=== PATIENT | male | born 1970 | race Caucasian/White ===

== ENCOUNTER 2018-09-05 22:27 | Observation (INO) ==
[2018-09-05] MEDS ORDERED: Morphine Inj 4 MG/ML Vial IV.PUSH ONE (22:36)
--- NOTE | 2018-09-05 22:43 | ED ---
HPI General Chief Complaint: Chest Pain Stated Complaint: chest pain Time Seen by Provider: 09/05/18 22:32 Source: patient Mode of arrival: ambulatory Limitations: no limitations History of Present Illness HPI narrative: The patient is a 48-year-old male who presents emergency department via private vehicle for chest pain. The patient states he was at a bar earlier [place], drinking beer, when he developed chest pain. The chest pain is substernal, lower aspect of the chest, radiating to the left upper extremity. He describes it occasionally is dull and occasionally a stabbing. He does complain of mild nausea and shortness of breath but denies any vomiting or diaphoresis. The patient denies any known history of coronary artery disease but does have a history of hypertension, noncompliant on medication. He denies any known history of hyperlipidemia, diabetes, prior CAD , or prior stress test/cardiac catheterization. He denies any recent exertional symptoms, but has had chest pain in the past, states he was evaluated the hospital for 8 hours and discharged home. He was advised to follow-up with a roofer gypsum, however, has not followed up with a roofer gypsum. MD complaint: Reports chest pain STEMI Alert: No Onset (ago): hour(s) Duration: intermittent Pain location: Reports substernal Severity: moderate Severity scale (1-10): 5 Quality: Reports sharp Pain radiation: Reports LUE Relieving factors: nothing Exacerbating factors: nothing Associated symptoms: Reports nausea and dyspnea Treatments prior to arrival chest pain: Reports none Related Data Home Medications Medication Instructions Recorded Confirmed No Known Home Medications 09/05/18 09/05/18 Allergies Allergy/AdvReac Type Severity Reaction Status Date / Time bee venom protein (honey bee) Allergy Severe PT STS Unverified 07/16/17 14:35 SEVERE REACTION Review of Systems ROS: all other systems reviewed are negative [facility] Medical History Medical History Basal cell carcinoma (Acute) Surgical History Surgical History Hx of adenoidectomy (Acute) Hx of tonsillectomy (Acute) Social History Social History Substance History: No History of Abuse Second Hand Smoke Exposure: Yes Smoking Status: Current every day smoker Tobacco Type: Cigarettes How Often Do You Have a Drink Containing Alcohol: 2 to 3 times a week Recent Travel in [facility] within the Last 8 Weeks: No Recent Out of Country Travel within the Last 8 Weeks: No Exam Narrative Exam Narrative: GENERAL: Awake, alert, pleasant 48-year-old male who appears his stated age and appears slightly intoxicated. SKIN: Focused skin assessment warm/dry. HEAD: Atraumatic. Normocephalic. EYES: Pupils equal and round. Mild injection bilaterally. ENT: No nasal bleeding or discharge. Mucous membranes pink and moist. Patient has a fleshy growth is approximately 2 cm in length over the right lateral duggan line. NECK: Trachea midline. No JVD. CARDIOVASCULAR: Regular rate and rhythm. No murmur appreciated. Heart rate in the 90s per RESPIRATORY: No accessory muscle use. Clear to auscultation. Breath sounds equal bilaterally. GASTROINTESTINAL: Abdomen soft, non-tender, nondistended. No rebound tenderness. MUSCULOSKELETAL: No obvious deformities. No clubbing. No cyanosis. No edema. NEUROLOGICAL: Awake and alert. No obvious cranial nerve deficits. Motor grossly within normal limits. Normal speech. PSYCHIATRIC: Appropriate mood and affect; insight and judgment normal. Course Initial Documented Vital Signs Pulse Rate 99 H 09/05/18 22:30 Respiratory Rate 18 09/05/18 22:30 Blood Pressure 200/94 H 09/05/18 22:30 Pulse Oximetry 96 09/05/18 22:30 Last Documented Vital Signs Pulse Rate 89 09/05/18 23:03 Respiratory Rate 15 09/05/18 23:03 Blood Pressure 175/85 H 09/05/18 23:03 Pulse Oximetry 99 09/05/18 23:03 Sign Out Sign Out Data: Patient Sign Out occurred on 09/06/18 at 00:07. Patient's care was discussed, and care was transferred from Tyson Albarado MD to Casimiro Modi MD. Sign Out Comment: 48-year-old male with history of hypertension with substernal chest pain rating to left upper extremity. Troponin pending. Patient may benefit from 23-hour observation to chest pain center if troponin is negative. Last updated by Tyson Albarado MD at 09/05/18 23:48 Post-Handoff Eval: The patient was evaluated by the previous provider and signed out to me at approximately midnight pending CMP, cardiac enzymes, and disposition. See his note for further details. Briefly this is a 48-year-old male who presented to the emergency department for substernal chest pain that radiated to his left shoulder that started at around 9:30 p.m. while at a bar. He reportedly had 2 beers to drink today. He is a daily smoker. He also has history of hypertension and is noncompliant with his medications. There is family history of cardiac disease in his father and brother who both had an SD. He has never been seen by a roofer gypsum. He was initially hypertensive with a systolic blood pressure in the 200s. Nitropaste was applied and repeat blood pressure shows 155/73. Patient was also provided morphine and aspirin by the previous provider and on my assessment he is pain-free. His EKG shows sinus rhythm with PVCs, normal axis, normal intervals, T wave inversions in lateral precordial and limb leads, no ST elevations. Cardiac enzymes are negative. The rest of his labs are reviewed. The patient was made aware of all findings and is amenable to being admitted to the chest pain center given his cardiac risk factors and presentation with chest pain. Case discussed with hospitalist GLORIA Earl who will admit the patient to the hospitalist service under Dr. Biswas. Medical Decision Making MDM Narrative Medical decision making narrative: IV was established, labs are drawn and sent, and the patient was placed on cardiac telemetry monitoring and continuous pulse oximetry monitoring. EKG was ordered and interpreted. The patient was administered aspirin, morphine, Zofran, nitroglycerin sublingual, and Nitropaste. Chest x-ray was obtained. Medical Screen Exam Complete: Yes Emergency Medical Condition: Yes Differential Diagnosis Differential Diagnosis: Differential diagnosis includes ACS, STEMI, dissection, esophageal spasm, GERD, esophagitis, gastritis, peptic ulcer disease, pancreatitis, pulmonary embolism. Lab Data Result diagrams: 09/05/18 22:45 09/05/18 22:30 Lab Results 09/05/18 09/05/18 09/05/18 Range/Units 22:30 22:45 22:45 CBC w Diff Auto diff final WBC 8.0 (4.0-11.0) th/mm3 RBC 4.64 (4.50-5.90) mil/mm3 Hgb 14.9 (13.0-17.0) gm/dL Hct 42.4 (39.0-51.0) % MCV 91.4 (80.0-100.0) fL MCH 32.1 (27.0-34.0) pg MCHC 35.1 (32.0-36.0) % RDW 12.6 (11.6-17.2) % Plt Count 233 (150-450) th/mm3 MPV 8.3 (7.0-11.0) fL Neut % (Auto) 52.9 (16.0-70.0) % Lymph % (Auto) 31.3 (9.0-44.0) % Ritchie % (Auto) 9.5 H (0.0-8.0) % Eos % (Auto) 5.3 H (0.0-4.0) % Baso % (Auto) 1.0 (0.0-2.0) % Neut # (Auto) 4.2 (1.8-7.7) th/mm3 Lymph # (Auto) 2.5 (1.0-4.8) th/mm3 Ritchie # (Auto) 0.8 (0.0-0.9) th/mm3 Eos # (Auto) 0.4 (0.0-0.4) th/mm3 Baso # (Auto) 0.1 (0.0-0.2) th/mm3 WBC Differential . Differential Comment . Sodium 139 (136-145) meq/L Potassium 3.6 (3.5-5.1) meq/L Chloride 107 (98-107) meq/L Carbon Dioxide 20.5 L (21.0-32.0) meq/L Anion Gap 12 (5-15) meq/L BUN 21 H (7-18) mg/dL Creatinine 1.20 (0.60-1.30) mg/dL Estimated GFR 64 L (>89) mL/min Random Glucose 100 (74-106) mg/dL Calcium 8.3 L (8.5-10.1) mg/dL Magnesium 2.4 (1.5-2.5) mg/dL Total Bilirubin 0.9 (0.2-1.0) mg/dL AST 22 (15-37) U/L ALT 37 (12-78) U/L Alkaline Phosphatase 91 (45-117) U/L Troponin I Less than 0.02 L (0.02-0.05) ng/mL Total Protein 7.7 (6.4-8.2) g/dL Albumin 4.1 (3.4-5.0) g/dL Lipase 136 (73-393) U/L Serum Alcohol 19 H (0-5) mg/dL Imaging Data Radiologist's impression: Chest X-Ray 09/05/18 22:37 CONCLUSION: No acute cardiopulmonary disease demonstrated. ECG Data EKG Prior to Arrival: No Attestation: I personally reviewed and interpreted this ECG as follows: Interpretation: EKG reveals sinus rhythm with unifocal PVC. Inverted T waves noted in lead V5, V6, I, and aVL. Q waves noted in lead V1. Discharge Plan Discharge Disposition Patient Disposition: 30 Still Patient Discharge Details Diagnosis: Chest pain Physicians Team ED Provider: Casimiro Modi Primary Care Provider: Primary Care Tamia Solorzano Rxs /Orders / Referrals /Forms Prescriptions: No Action No Known Home Medications RF: 0 Discharge Instructions Patient Printed Instructions: Chest Pain (ED) Status ED Status: With Doctor
--- NOTE | 2018-09-05 22:57 | XR ---
EXAM DATE: 09/05/2018 10:37 PM EDT AGE/SEX: 48 years / Male INDICATIONS: Chest pain starting today CLINICAL DATA: This is the patient's initial encounter. Patient reports that signs and symptoms have been present for 1 day and indicates a pain score of 8/10. MEDICAL/SURGICAL HISTORY: None. None. COMPARISON: No prior exams available for comparison. FINDINGS: A single AP view of the chest demonstrates the lungs to be symmetrically aerated without evidence of mass, infiltrate or effusion. The cardiomediastinal contours are unremarkable. Osseous structures a re intact. CONCLUSION: No acute cardiopulmonary disease demonstrated. Electronically signed by: Giovany Junior MD 09/05/2018 10:55 PM EDT
[2018-09-05 23:05] LABS: Baso # (Auto) 0.1 th/mm3 (0.0-0.2); Eos # (Auto) 0.4 th/mm3 (0.0-0.4); Eos % (Auto) 5.3 % (0.0-4.0); Hematocrit 42.4 % (39.0-51.0); Hemoglobin 14.9 gm/dL (13.0-17.0); Lymph # (Auto) 2.5 th/mm3 (1.0-4.8); Lymph % (Auto) 31.3 % (9.0-44.0); Mean Corpuscular HGB Conc 35.1 % (32.0-36.0); Mean Corpuscular Hemoglobin 32.1 pg (27.0-34.0); Mean Corpuscular Volume 91.4 fL (80.0-100.0); Mean Platelet Volume 8.3 fL (7.0-11.0); Mono # (Auto) 0.8 th/mm3 (0.0-0.9); Mono % (Auto) 9.5 % (0.0-8.0); Neut # (Auto) 4.2 th/mm3 (1.8-7.7); Neut % (Auto) 52.9 % (16.0-70.0); Platelet Count 233 th/mm3 (150-450); Red Blood Count 4.64 mil/mm3 (4.50-5.90); Red Cell Distribution Width 12.6 % (11.6-17.2)
[2018-09-05 23:16] LABS: Lipase 136 U/L (73-393)
[2018-09-05 23:23] LABS: Alcohol 19 mg/dL (0-5)
[2018-09-05 23:49] LABS: Chloride 107 meq/L (98-107); Potassium 3.6 meq/L (3.5-5.1); Sodium 139 meq/L (136-145)
[2018-09-05 23:52] LABS: Albumin 4.1 g/dL (3.4-5.0); Anion Gap 12 meq/L (5-15); Calcium 8.3 mg/dL (8.5-10.1); Carbon Dioxide 20.5 meq/L (21.0-32.0); Glucose,Random 100 mg/dL (74-106); Magnesium 2.4 mg/dL (1.5-2.5)
[2018-09-05 23:53] LABS: Blood Urea Nitrogen 21 mg/dL (7-18)
[2018-09-05 23:56] LABS: Alanine Aminotransferase 37 U/L (12-78); Aspartate Aminotransferase 22 U/L (15-37); Glomerular Filtration Rate 64 mL/min (>89)
[2018-09-05 23:57] LABS: Total Protein 7.7 g/dL (6.4-8.2)
[2018-09-05 23:58] LABS: Alkaline Phosphatase 91 U/L (45-117)
[2018-09-06] MEDS ORDERED: Morphine Inj 4 MG/ML Vial IV.PUSH PRN (00:20)
[2018-09-06] MEDS ORDERED: Acetaminophen 500 MG Tablet PO PRN (00:20)
[2018-09-06] MEDS: Heparin - SQ 10,000 UNITS/ML Vial SQ SCH ×2 (01:14→08:56)
[2018-09-06 02:11] LABS: Creatine Kinase 209 U/L (39-308)
[2018-09-06 05:06] LABS: Creatine Kinase 193 U/L (39-308)
[2018-09-06 08:34] VITALS: BP 164/98; RESP 17; TEMP 98.2; O2SAT 94
[2018-09-06] MEDS ORDERED: Aspirin 325 MG Tablet PO SCH (09:00)
--- NOTE | 2018-09-06 09:00 | P.HP ---
History of Present Illness Primary Care Physician: No Primary Care Physician Chief Complaint: Chest pain History of Present Illness: This is a 41-year-old male patient with a known medical history of tobacco abuse who presented to the ED with complaints of chest pain. Patient states he was at our last evening, drink a couple beers and suddenly developed a midsternal chest pain. Patient states that chest pain was located in the middle of his chest, did not radiate up his neck, arm or back, was characteristically tight and sharp in nature, was rated a 8 out of 10 at its worst on pain scale, would intermittently come and go lasting up to 10 minutes. Patient does admit to associated shortness of breath, denies any nausea, vomiting or sweating with the pain. Patient denies any history of coronary artery disease, does state he has a history of hypertension although does not take anything for it. He does have a significant family medical history of his brother having an IA at the age of 50 as well as his father having an IA at a young age. Patient does not take any medications at home. He does admit to smoking 2 packs/day of cigarettes to since his teen years. He is overweight. Denies any drug use. Denies any previous stress test in the past. It should be noted that patient was at the hospital in [facility] 2 weeks ago with similar complaints, he was evaluated and discharged home with no further input or workup. Was recommended that patient follow-up with the apprentice machinist outside although he has not followed up. At the time of assessment patient states his pain is continued, did improve with nitroglycerin. ACS has been ruled out. Patient will undergo a cardiac nuclear stress test to further rule out any ischemia. - Diagnosis (1) Chest pain Review of Systems All other systems reviewed negative except as stated in HPI PMFSH - History History Provided By: Patient - Medical History Medical History: Medical History (Last Reviewed 09/06/18 @ 11:15 by Isamar Dye) Basal cell carcinoma - Surgical History Surgical History: Surgical History (Last Reviewed 09/06/18 @ 11:15 by Isamar Dye) Hx of adenoidectomy Hx of tonsillectomy - Family History Family History: Family History (Last Reviewed 09/06/18 @ 11:17 by Isamar Dye) Father Myocardial infarction Brother Myocardial infarction - Tobacco History Second Hand Smoke Exposure: Yes Tobacco Use In Past 30 Days: Yes Smoking Status: Current every day smoker Tobacco Type: Cigarettes - Alcohol History How Often Do You Have a Drink Containing Alcohol: 2 to 3 times a week - Substance Use History Substance History: No History of Abuse - Travel History Recent Travel in the [place] Within the Last 8 Weeks: No Recent Travel Out of the Country Within the Last 8 Weeks: No - Immunization History Tetanus Immunization: Unsure Medications and Allergies Active Medications: Active Medications Acetaminophen (Tylenol) 500 mg PO Q4H PRN PRN Reason: HEADACHE Hydrocodone Bitart/Acetaminophen ([place] 7.5/325) 1 tab PO Q4H PRN PRN Reason: PAIN SCALE 1 TO 7 Aspirin (Aspirin) 325 mg PO DAILY LAINE Clonidine HCl (Catapres) 0.1 mg PO Q6H PRN PRN Reason: SBP>160, DBP>90 Heparin Sodium (Porcine) (Heparin Inj) 5,000 units SQ Q8H [facility] Last Admin: 09/06/18 01:14 Dose: 5,000 units Morphine Sulfate (Morphine Inj) 2 mg IV.PUSH Q4H PRN PRN Reason: PAIN SCALE 8 TO 10 Nitroglycerin (Nitrostat Sl) 0.4 mg SL Q5M PRN PRN Reason: CHEST PAIN Ondansetron HCl (Zofran Inj) 4 mg IV.PUSH Q6H PRN PRN Reason: NAUSEA Sodium Chloride (Ns Flush) 2 ml IV.FLUSH BID LAINE Sodium Chloride (Ns Flush) 2 ml IV.FLUSH PRN PRN PRN Reason: FLUSH AFTER USING IV ACCESS Allergies Allergy/AdvReac Type Severity Reaction Status Date / Time bee venom protein (honey bee) Allergy Severe PT STS Verified 09/06/18 07:34 SEVERE REACTION Home Medications Medication Instructions Recorded Confirmed Type No Known Home Medications 09/05/18 09/05/18 History Exam Vital signs: Vital Signs 09/05/18 22:30 09/05/18 22:32 09/05/18 23:03 Temperature Pulse Rate 99 H 89 89 Respiratory Rate 18 15 Blood Pressure 200/94 H 175/85 H Pulse Oximetry 96 99 99 09/06/18 00:35 09/06/18 00:54 09/06/18 00:56 Temperature Pulse Rate 82 Respiratory Rate 15 15 Blood Pressure 156/85 H Pulse Oximetry 99 96 09/06/18 01:14 09/06/18 01:45 09/06/18 04:00 Temperature 96.3 F L 96.5 F L Pulse Rate 72 70 Respiratory Rate 20 20 Blood Pressure 177/93 H 127/82 Pulse Oximetry 97 95 93 L 09/06/18 08:00 Temperature 98.2 F Pulse Rate 68 Respiratory Rate 17 Blood Pressure 164/98 H Pulse Oximetry 94 L Intake & Output 09/05/18 09/06/18 09/06/18 18:59 06:59 18:59 Intake Total 0 / 0 Balance 0 / 0 Weight 120.5 kg Intake: Oral 0 / 0 Other: Weight On Admission 120.6 kg Narrative: GENERAL: Well-developed, well-nourished obese male patient with current complaint of chest pain. SKIN: Warm and dry. No rash. HEAD: Normocephalic. Atraumatic. EYES: Pupils equal and round. No scleral icterus. No injection or drainage. ENT: No nasal bleeding or discharge. Mucous membranes pink and moist. NECK: Supple. Trachea midline. CARDIOVASCULAR: Regular rate and rhythm. S1, S2 noted. No murmur appreciated. RESPIRATORY: No accessory muscle use. Clear to auscultation. Breath sounds equal bilaterally. GASTROINTESTINAL: Abdomen soft, rounded firm, nondistended. Normoactive bowel sounds x4. MUSCULOSKELETAL: No obvious deformities. Extremities without clubbing, cyanosis , or edema. NEUROLOGICAL: Awake and alert. No obvious cranial nerve deficits. Motor grossly within normal limits. 5/5 muscle strength in bilateral upper and lower extremities. Normal speech. PSYCHIATRIC: Appropriate mood and affect; insight and judgment normal. Results - Labs CBC & Chem 7: 09/05/18 22:45 09/05/18 22:30 Labs: Laboratory Results - last 24 hr 09/05/18 09/05/18 09/05/18 22:30 22:45 22:45 CBC w Diff Auto diff final WBC 8.0 RBC 4.64 Hgb 14.9 Hct 42.4 MCV 91.4 MCH 32.1 MCHC 35.1 RDW 12.6 Plt Count 233 MPV 8.3 Neut % (Auto) 52.9 Lymph % (Auto) 31.3 Wilkin % (Auto) 9.5 H Eos % (Auto) 5.3 H Baso % (Auto) 1.0 Neut # (Auto) 4.2 Lymph # (Auto) 2.5 Wilkin # (Auto) 0.8 Eos # (Auto) 0.4 Baso # (Auto) 0.1 WBC Differential . Differential Comment . Sodium 139 Potassium 3.6 Chloride 107 Carbon Dioxide 20.5 L Anion Gap 12 BUN 21 H Creatinine 1.20 Estimated GFR 64 L Random Glucose 100 Calcium 8.3 L Magnesium 2.4 Total Bilirubin 0.9 AST 22 ALT 37 Alkaline Phosphatase 91 Total Creatine Kinase Troponin I Less than 0.02 L Total Protein 7.7 Albumin 4.1 Lipase 136 Serum Alcohol 19 H 09/06/18 09/06/18 01:45 04:30 CBC w Diff WBC RBC Hgb Hct MCV MCH MCHC RDW Plt Count MPV Neut % (Auto) Lymph % (Auto) Wilkin % (Auto) Eos % (Auto) Baso % (Auto) Neut # (Auto) Lymph # (Auto) Wilkin # (Auto) Eos # (Auto) Baso # (Auto) WBC Differential Differential Comment Sodium Potassium Chloride Carbon Dioxide Anion Gap BUN Creatinine Estimated GFR Random Glucose Calcium Magnesium Total Bilirubin AST ALT Alkaline Phosphatase Total Creatine Kinase 209 193 Troponin I Less than 0.02 L Less than 0.02 L Total Protein Albumin Lipase Serum Alcohol - Imaging Impressions Chest X-Ray 09/05/18 22:37 CONCLUSION: No acute cardiopulmonary disease demonstrated. Caprini VTE Risk Assessment Caprini VTE Risk Assessment: No/Low Risk (score <= 1) Caprini Risk Assessment Model: Point Value = 1 Point Value = 2 Point Value = 3 Point Value = 5 Age 41-60 Minor surgery BMI > 25 kg/m2 Swollen legs Varicose veins or History of unexplained or recurrent spontaneous Oral contraceptives or hormone replacement Sepsis (< 1 month) Serious lung disease, including pneumonia (< 1 month) Abnormal pulmonary function Acute myocardial infarction Congestive heart failure (< 1 month) History of inflammatory bowel disease Medical patient at bed rest Age 61-74 Arthroscopic surgery Major open surgery (> 45 min) Laparoscopic surgery (> 45 min) Malignancy Confined to bed (> 72 hours) Immobilizing plaster cast Central venous access Age >= 75 History of VTE Family history of VTE Factor V Leiden Prothrombin [id number] Lupus anticoagulant Anticardiolipin antibodies Elevated serum homocysteine Heparin-induced thrombocytopenia Other congenital or acquired thrombophilia Stroke (< 1 month) Elective arthroplasty Hip, pelvis, or leg fracture Acute spinal cord injury (< 1 month) Prophylaxis Regimen: Total Risk Factor Score Risk Level Prophylaxis Regimen 0-1 Low Early ambulation 2 Moderate Order ONE of the following: *Sequential Compression Device (SCD) *Heparin 5000 units SQ BID 3-4 Higher Order ONE of the following medications: *Heparin 5000 units SQ TID *Enoxaparin/Lovenox 40 mg SQ daily (WT < 150 kg, CrCl > 30 mL/min) *Enoxaparin/Lovenox 30 mg SQ daily (WT < 150 kg, CrCl > 10-29 mL/min) *Enoxaparin/Lovenox 30 mg SQ BID (WT < 150 kg, CrCl > 30 mL/min) AND/OR *Sequential Compression Device (SCD) 5 or more Highest Order ONE of the following medications: *Heparin 5000 units SQ TID (Preferred with Epidurals) *Enoxaparin/Lovenox 40 mg SQ daily (WT < 150 kg, CrCl > 30 mL/min) *Enoxaparin/Lovenox 30 mg SQ daily (WT < 150 kg, CrCl > 10-29 mL/min) *Enoxaparin/Lovenox 30 mg SQ BID (WT < 150 kg, CrCl > 30 mL/min) AND *Sequential Compression Device (SCD) Assessment and Plan - Assessment (1) Chest pain Code(s): R07.9 - Chest pain, unspecified Status: Acute - Plan This is a 48-year-old male patient with: Chest pain -Patient has been admitted to the chest pain center for observation. -Serial EKGs and serial troponins been ordered for ruling out ACS purposes. Troponins are flat. -EKG reviewed showing controlled heart rate, no ST changes to indicate ischemia , there are T wave inversions similar out laterally. -Cardiac telemetry continued overnight, no arrhythmias noted occasional PVCs noted. Will continue for now. Nitroglycerin available. Has helped improve the pain. Morphine IV available as needed. -Aspirin was given ED. Will continue. -CBC and BMP reviewed, essentially unremarkable. Lipid panel ordered to labs. -Chest x-ray reviewed showing no acute cardiopulmonary disease. -Patient will undergo a cardiac Lexiscan to further rule out any ischemia. -Further hospitalization treatment plan will depend on nuclear imaging results. -Patient is stable at this time and agreeable to plan. Hypertension -Patient states he has been diagnosed with hypertension although he does not take anything for it at home. -Blood pressure trends monitored. Will continue trends. May be secondary to pain. Nitroglycerin offered. -Patient may need antihypertensive upon discharge. We will continue to monitor. Tobacco abuse: Patient encouraged cessation. Nicotine patch. DVT prophylaxis: SCDs. Ambulation. (1) Chest pain Qualifiers: Chest pain type: unspecified Qualified Code(s): R07.9 - Chest pain, unspecified
[2018-09-06 11:29] VITALS: PULSE 67
[2018-09-06] MEDS ORDERED: Regadenoson Inj 0.4 MG/5 ML Syringe IV.PUSH ONE (11:46)
--- NOTE | 2018-09-06 13:08 | ECG ---
Date Performed: 09/06/2018 Time Performed: 04:25:32 PTAGE: 48 years EKG: Sinus rhythm MODERATE T-WAVE ABNORMALITY, CONSIDER LATERAL ISCHEMIA ABNORMAL ECG PREVIOUS TRACING : 09/06/2018 01.37 DOCTOR: Espinoza Anguiano Interpretating Date/Time 09/06/2018 13:04:29
--- NOTE | 2018-09-06 13:10 | ECG ---
Date Performed: 09/06/2018 Time Performed: 01:37:48 PTAGE: 48 years EKG: Sinus rhythm SEPTAL MYOCARDIAL INFARCTION MODERATE T-WAVE ABNORMALITY, CONSIDER LATERAL ISCHEMIA ABNORMAL ECG PREVIOUS TRACING : 09/05/2018 22.35 DOCTOR: Espinoza Anguiano Interpretating Date/Time 09/06/2018 13:07:47
--- NOTE | 2018-09-06 13:12 | ECG ---
Date Performed: 09/05/2018 Time Performed: 22:35:02 PTAGE: 48 years EKG: Sinus rhythm WITH OCCASIONAL VENTRICULAR PREMATURE COMPLEXES SEPTAL MYOCARDIAL INFARCTION MODERATE T-WAVE ABNORMA LITY, CONSIDER LATERAL ISCHEMIA ABNORMAL ECG NO PREVIOUS TRACING DOCTOR: Espinoza Anguiano Interpretating Date/Time 09/06/2018 13:08:24
--- NOTE | 2018-09-06 13:16 | NM ---
EXAM DATE: 09/06/2018 11:08 AM EDT AGE/SEX: 48 years / Male INDICATIONS:Angina. . Chest pain. CLINICAL DATA: This is the patient's initial encounter. Patient reports that signs and symptoms have been present for 1 day and indicates a pain score of 0/10. MEDICAL/SURGICAL HISTORY: Hypertension. Carcinoma, basal cell. Smoker. Tonsillectomy. COMPARISON: No prior exams available for comparison. DOSE: 11.0 mCi Tc 99m Myoview at rest 35.0 mCi [id number] at stress 0.4 mg Lexiscan STRESS SYMPTOMS: Headache and dyspnea. EJECTION FRACTION: 68 % TECHNIQUE: The patient underwent pharmacologic stress with infusion of prescribed dose. Continuous ECG tracing was monitored during stress. Gated SPECT imaging was performed after stress and conventi onal SPECT imaging was performed at rest. The examination was performed on a SPECT/CT scanner, both attenuation and non-corrected datasets were reviewed. FINDINGS: Distribution: The maximum perfused segment at stress is in the septal wall. Perfusion Study: The pattern of perfusion at stress is within normal limits. Gated Study: There are intact wall motion and wall thickening without hypokinetic or dyskinetic segm ents. The ejection fraction is calculated at 68%. RISK CATEGORY: Low (<1% Annual Motality Rate) CONCLUSION: 1. Unremarkable myocardial perfusion examination. Electronically signed by: Kiko Hanson MD 09/06/2018 1:14 PM EDT
--- NOTE | 2018-09-06 14:01 | TR ---
Date Performed: 09/06/2018 Time Performed: 12:00:53 DOCTOR: Darius Ferrer DRUG LIST: CLINICAL HISTORY: REASON FOR TEST: REASON FOR ENDING: OBSERVATION: CONCLUSION: COMMENTS: Lexiscan stress test was performed under standard four minute protocol. Radionuclide was injected one minute prior to ending the test. No electrocardiographic abormalities were present t o suggest ischemia. Nuclear imaging and interpretation are pending.
[2018-09-06 16:34] LABS: Chol/HDL Ratio 4.47 Ratio; HDL Cholesterol 36.4 mg/dL (40.0-60.0)
== END 2018-09-06 15:06 | disposition home or self-care (01) ==
LOC: PHEDA 22:27 → PHED 22:27 → PH3 09-06 01:08
PROVIDERS: ADMIT Internal Medicine; ATTEND Internal Medicine